=== PATIENT | male | born 2000 ===

== ENCOUNTER 2025-05-26 11:17 | Outpatient (REF) | payer MEDICAID, SELFPAY ==
--- OUTSIDE RECORDS SUMMARY | 2023-02-28 07:00 | XMS_ITS | Continuity of Care Document ---
Author Organization [facility] Address [address] [place] [address] Phone Care Team Providers Care Account Services Analyst Name Role Phone Chad THOMAS Kala Unavailable Unavailable Allergies, Adverse Reactions, Alerts Substance Reaction Status Criticality No Known Allergies Active No Inform ation Problems Condition Type Effective Dates (start - stop) Clini iftikhar Status Comments No Known Problems Procedures Procedure Date Prophylaxis-Adult Oral Hygiene Instructions Bitewings-Four Films Intraoral-Periapical First Film 023 Intraoral-Periapical Each Additional Adrian m OFFICE/OUTPT Visit - Established - Low M DM, 20 - 29 Minutes OFFICE/OUTPT Visit - Established - SF MD M, 10 - 19 Minutes PURE TONE HEARING TEST, AIR VISUAL ACUITY SCREEN PREV VISIT, NEW, AGE 18-39 Depression Screening, Negative Advance Directives Directive Yes / No Effective Date File Name No Information Encounters Encounter Description Practice Location Reason(s) For Visit Diagnoses Date Provider Providers Copied on Encounter [facility], [address] [place] [address], [id number], [place] tel:[phone] [facility] Dental No Information 3 Chad Armendariz. 500 [facility], [id number] [address] [place] [address], [id number], [place]. tel:[phone] OFFICE/OUTPT Visit - Established - Low MDM, 20 - 29 Minutes [facility], [address] [place] [address], [id number], [place] tel:[phone] [facility] Pediatrics Rash on left leg x2 days (chief complaint) Body mass index (BMI) 19 or less, adultTinea corporis 3 Mateo Perla. [address] Savita Wharton, [id number] [address] [place] [address], [facility], [place]. tel:[phone] OFFICE/OUTPT Visit - Established - MDM, 10 - 19 Minutes [facility], [address] [place], [place], [facility], tel:[phone] [facility] Pediatrics Follow Up (chief complaint) Body mass index (BMI) 19 or less, adultEncounter for general adult medical examination without abnormal findings 3 Mark Smith. [address], [id number] [facility], [place], [place], [facility], [place]. tel:[phone] PREV VISIT, NEW, AGE 18-39 [facility], [address] [place] [address], [place], [facility], [place] tel:[phone] [facility] Pediatrics Preventive Medicine (chief complaint)N ew PT from [place] (chief complaint) Encounter for general adult medical examination without abnormal findingsBody mass index (BMI) 19 or less, adultEncounter for exam of ears and hearing w/o abnormal findingsEncounte r for exam of eyes and vision w/o abnormal findingsScreenin g for depressionSleep difficultiesDiab etes mellitus screening 3 Mark Smith. Tarsha Wharton, [id number] [address], [place], [address], [place]. tel:[phone] Family History Family Member Type Diagnosis Age At Onset Maternal grandfather Problem Thyroid disorder Mother Problem hypertension Paternal grandmother Problem Diabetes mellitus Payers Payer name Insurance type Covered republican ID Authorverna tiwale(s) D Medicaid [id number] Social History Type Description Quantity Date Captured Comments Sex Male Smoking Status No Information Sexual Orientation Choose not to disclose Gender Identity Male Chief Complaint And Reason For Visit No Information Reason For Referral Reason For Referral No Information Plan Of Treatment Date Type Action Status Goal Dietary management education , guidance, and counseling completed Goal Dietary management education , guidance, and counseling completed Goal Dietary management education , guidance, and counseling completed History Of Present Illness Encounter Date Complaint History Of Prese nt Illness Rash on left leg x2 days Patient presents with a 2-day history of circular rash on left outer thigh.He denies use of new soaps, detergents, or body products. No known allergies.He states the rash is occasionally itchy, no pain or drainage.He has not taken any medicine for relief. Follow Up Here for F/U. Be s not brought the vaccine record from [place]. No hospitalizations. No meds. NKDA.Looking for a job. Denies smoking and drug abuse. No sex yet. Reports good mood, no SI.Hx of difficulty falling asleep. Sleeps better with the melatonin, 6-7 hours/night. Eats breakfast daily. Preventive Medicine New patient. Here for PE. No hospitalizations. No meds. NKDA.Looking for a job. Denies smoking and drug abuse. No sex yet. Reports good mood, no SI.Reports difficulty falling asleep. Sleeps 6-7 hours/night. Eats breakfast daily. New PT from [place] Functional Status Date Functional Assessmen t No Information Instructions Date Instruction Additional Infor kristina - prescribed clotrim azole to be applied to rash for 2-3 weeks- check other in house for same rash- wash clothes and bedding in hot water- follow up in 2 weeks Related to Tinea corporis Exercise promotion: stretching R elated to Body mass index [BMI] 19.9 or less, adult Dietary management e ducation, guidance, and counseling Related to Body mass index [BMI] 19.9 or less, adult Dietary management e ducation, guidance, and counseling Related to Body mass index [BMI] 19.9 or less, adult Exercise promotion: stretching R elated to Body mass index [BMI] 19.9 or less, adult Dietary management e ducation, guidance, and counseling Related to Body mass index [BMI] 19.9 or less, adult Exercise promotion: stretching R elated to Body mass index [BMI] 19.9 or less, adult Assessments Type Assessment Date No Information Patient Care Teams Name Effective Dates (start - stop) Status Members No Information
--- OUTSIDE RECORDS SUMMARY | 2025-05-26 10:20 | XMS_ITS | Encounter Summary ---
Author Organization [employer] Address [address] [place] [address] [address] [place] [address] Care Team Providers Care Catering Driver Name Role Phone Unavailable Primary Care Provider Unavailabl e Reason for Referral * Consultation (Routine) - Authorized Specialty Diagnoses / Procedures Referred By Sacha t Referred To Contact Family Medicine Diagnoses Penile rash Christopher Restrepo MD [address] [place] [address] Phone: tel: fax: Referral ID Status Reason Start Date Expiration Date Visits Requested Visits Authorized [id number] Authorized Specialty Services Required 05/26/2025 05/26/2026 1 1 Reason for Visit * Reason Comments Asthma Wheezing mostly duri ng the night time Rash Rash on the genital area with discoloration Encounter Details Date Type Department Care Team ([facility] st Contact Info) Description 05/26/2025 10:20 AM EDT Office Visit [facility] [address] [place] [phone] Christopher Restrepo MD [address] [place], [place] [id number] Penile rash (Primary Dx); Moderate persistent asthma without complication Social History Tobacco Use Types Packs/Day Years Used Date Smoking Tobacco: Never Smokeless Tobacco: Never Tobacco Cessation:Counseling Given: Not Answered Alcohol Use Standard Drinks/Week Comments Not Currently 0 (1 standard drink = 0.6 oz pur e alcohol) Sex and Gender Information Value Date Recorded Sex Assigned at Male 01/06/2025 4:43 PM EDT Legal Sex Male 3:49 PM EST Gender Identity Male 01/06/2025 4:43 PM EDT Sexual Orientation Bisexual 01/06/2025 4: 43 PM EDT documented as of this encounter Last Filed Vital Signs Vital Sign Reading Time Taken Comments Blood Pressure 130/77 05/26/2025 10:49 AM EDT Pulse 74 05/26/2025 10:49 AM EDT Temperature 36.7 C (98 F) 05/26/2025 10:49 AM EDT Respiratory Rate 18 05/26/2025 10:49 AM EDT Oxygen Saturation 98% 05/26/2025 10:49 AM EDT Inhaled Oxygen Concentration - - Weight 72.6 kg (160 lb) 05/26/2025 10:49 AM EDT Height - - Body Mass Index 21.11 01/06/2025 5:35 PM EDT documented in this encounter Progress Notes * Christopher Restrepo MD - 05/26/2025 10:20 AM EDT Subjective Patient ID: Ronald Pineda is a 25 y.o. male. YOMAIRA Cardenas was seen as a new patient at [facility] January 06, 2025 for a 1 month history of an itchy rash on the shaft of his penis. He denied any urethral discharge dysuria or hematuria. He has male partners in always uses a condom. Has no history of STI. He was prescribed Lotrimin 1% cream. STI testing was ordered but he did not have the test done. He returns to walk-in clinic today because the Lotrimin cream helped the penile rash itching but not the rash, which . Also requesting refill of albuterol HFA which he uses from 1 to 3 days/week every week. Currently asymptomatic. States history of asthma since childhood Never intubated. Lives with mother and brother. 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 Never smoked. No EtOH. No illicit substances. The following portions of the chart were reviewed this encounter and updated as appropriate: Allergies Meds Problems Med Hx Surg Hx Fam Hx Review of Systems Constitutional: Negative for fever. Respiratory: Negative for shortness of breath. Cardiovascular: Negative for chest pain. Gastrointestinal: Negative for abdominal pain. Skin: Positive for rash. Neurological: Negative for headaches. Objective Physical Exam Constitutional: Appearance: Normal appearance. HENT: Nose: Nose normal. Mouth/Throat: Mouth: Mucous membranes are moist. Pharynx: Oropharynx is clear. Eyes: Conjunctiva/sclera: Conjunctivae normal. Pupils: Pupils are equal, round, and reactive to light. Cardiovascular: Rate and Rhythm: Normal rate and regular rhythm. Heart sounds: No murmur heard. Pulmonary: Effort: Pulmonary effort is normal. Breath sounds: Normal breath sounds. Genitourinary: Penis: Circumcised. Comments: Mild, diffuse, minimally erythematous macular rash over the penis shaft and scrotum. Musculoskeletal: General: Normal range of motion. Cervical back: No tenderness. Skin: Findings: No rash. Neurological: Mental Status: He is alert. Gait: Gait is intact. Psychiatric: Mood and Affect: Mood normal. Behavior: Behavior normal. Procedures Assessment/Plan Diagnoses and all orders for this visit: Penile rash Prescribed betamethasone valerate 0.1% cream to use sparingly. STI lab tests ordered. Will call patient with results. Discussed PrEP, which he would like to start. I called [facility] and they will call patient with appointment. Referred to [facility] dermatology clinic. - Hepatitis B Core Antibody, Total; Future - Hepatitis B Surface Antibody, Qualitative; Future - Hepatitis B surface antigen, EIA; Future - Hepatitis C Antibody with Reflex to HCV, RNA, Quantitative, Real-Time PCR; Future - HIV-1/2 Antigen and Antibodies, Fourth Generation, with Reflexes; Future - RPR (Monitor) with Reflex to Titer; Future - Comprehensive Metabolic Panel; Future - CBC auto differential; Future - Hemoglobin A1c; Future - Vitamin D, 25-Hydroxy, Total, Immunoassay; Future - Chlamydia/N. Gonorrhoeae RNA, TMA, Urogenitial; Future Moderate persistent asthma without complication Refilled albuterol HFA. He declines spacer. Prescribed Arnuity Ellipta because of frequency of needing albuterol. Return to clinic for concerns. I asked for a new patient PCP appointment. Other orders - betamethasone valerate (Valisone) 0.1 % cream; Apply topically 2 times daily. - albuterol 108 (90 Base) MCG/ACT inhaler; Inhale 2 puffs every 4 (four) hours if needed for wheezing or shortness of breath. - fluticasone furoate (Arnuity Ellipta) 100 MCG/ACT inhaler; Inhale 1 puff Once per day. Rinse mouth with water after use to reduce aftertaste and incidence of candidiasis. Do not swallow. documented in this encounter Plan of Treatment Scheduled Orders Name Type Priority Associated Diagnoses Orde r Schedule Hepatitis B Core Antibody, Total Lab Routine Penile rash Expected: 05/26/2025 (Approximate), Expires: 05/26/2026 Hepatitis B Surface Antibody, Qualitative Lab Routine Penile rash Expected: 05/26/2025 (Approximate), Expires: 05/26/2026 Hepatitis B surface antigen, EIA Lab Routine Penile rash Expected: 05/26/2025 (Approximate), Expires: 05/26/2026 Hepatitis C Antibody with Reflex to HCV, RNA, Quantitative, Real-Time PCR Lab Routine Penile rash Expected: 05/26/2025 (Approximate), Expires: 05/26/2026 HIV-1/2 Antigen and Antibodies, Fourth Generation, with Reflexes Lab Routine Penile rash Expected: 05/26/2025 (Approximate), Expires: 05/26/2026 RPR (Monitor) with Reflex to Titer Lab Routine Penile rash Expected: 05/26/2025 (Approximate), Expires: 05/26/2026 Chlamydia/N. Gonorrhoeae RNA, TMA, Urogenitial Microbiology Routine Penile rash Expected: 05/26/2025 (Approximate), Expires: 05/26/2026 Scheduled Referrals Name Type Priority Associated Diagnoses Orde r Schedule Referral to [facility] Derm Skin Adult Outpatient Referral Routine Penile rash Expected: 05/26/2025 (Approximate), Expires: 05/26/2026 documented as of this encounter Procedures Procedure Name Priority Date/Time Associated Diagnosis Comments VITAMIN D,25-OH,TOTAL,IA Routine 05/26/2025 11:38 AM EDT Penile rash CBC WITH AUTO DIFFERENTIAL Routine 05/26/2025 11:38 AM EDT Penile rash HEMOGLOBIN A1C Routine 05/26/2025 11:38 AM EDT Penile rash COMPREHENSIVE METABOLIC PANEL Routine 05/26/2025 11:38 AM EDT Penile rash documented in this encounter Results * (ABNORMAL) Vitamin D, 25-Hydroxy, Total, Immunoassay (05/26/2025 11:38 AM EDT) Vitamin D 25-OH Total 17.9(L) >30 ng/mL [facility] Comment: Health Based Reference Values*< 20 ng/mL Mydaytpxj52-67 ng/mL Insufficient> 30 ng/mL Sufficient*Patria PAREDES. N Engl J Med. 2007;357:266-280There is no well-established upper level of normal vitamin Dlevels. Some laboratories use 50 ng/mL as an upper limit ofnormal. However, toxicity is patient-dependent and may occurat any level. Careful correlation with the patient'spresentation is necessary and, if there is concern forvitamin D toxicity, treatment should be consideredirrespective of the serum level.Care must be taken in interpreting Vitamin D results fromdifferent laboratories and methodologies. Published datademonstrated that results from patients undergoinghemodialysis may show a negative bias when tested withvarious automated 25-OH vitamin D assays when compared toLC-MS/MS.When testing samples from patients whose predominant form ofVitamin D is Vitamin D2, such as patients receiving VitaminD2 supplementation, results that are subtherapeutic shouldbe confirmed with another method such as LC-MS/MS. Blood 05/26/2025 11:3 8 AM EDT 05/26/2025 1:13 PM EDT us Christopher Restrepo MD LAB BLOOD ORDERABLES Final Resul t [facility] [address] [place] [phone] * Hemoglobin A1c (05/26/2025 11:38 AM EDT) Hemoglobin A1c 5.3 <6.0 % [facility] Comment:Hemoglobin A1C Refer ence Range Adults: 4.8 - 6.0 % Non diabetic: < 6.0 % Goal: < 7.0 %Additional Action Suggested: > 8.0 %Note: Hemoglobin A1c results are invalid for patients with abnormal amounts of HbF. Blood transfusions may impact the HbA1c concentration in the patient sample. Estimated Average Glucose 105 mg/dL [facility] Comment:eAG = Estimated ave rage glucose which is %A1C expressed asaverage glucose, using the formula of the [id number] Glucose study (ADAG), Diabetes Care, Vol.31,#8,Apr. 2007 Blood Venous blood specimen / Unknown 05/26/2025 11:38 AM EDT 05/26/2025 1:13 PM EDT us Christopher Restrepo MD LAB BLOOD ORDERABLES Final Resul t [facility] [address], [place] [phone] * (ABNORMAL) CBC auto differential (05/26/2025 11:38 AM EDT) White Blood Count 5.9 4.8 - 10.8 X10*3/uL [facility] Red Blood Count 4.68 4.60 - 5.80 X10*6/uL [facility] Hemoglobin 13.6(L) 14.0 - 18.0 g/dl [facility] Hematocrit 41.4(L) 42.0 - 52.0 % [facility] Mean Corpuscular Volume 88.5 80.0 - 98.0 fL [facility] Mean Corpuscular Hemoglobin 29.1 27.0 - 33.0 pg [facility] Mean Corpuscular HGB Conc 32.9 31.0 - 36.0 g/dl [facility] Red Cell Distribution Width 12.8 11.0 - 16.0 % [facility] Platelet Count 373 160 - 400 X10*3/uL [facility] Mean Platelet Volume 10.2 9.4 - 12.4 fL [facility] Neutrophils Percent Auto 60.6 45 - 73 % [facility] Imm Gran Pct Auto 0.2 0.0 - 0.4 % [facility] Lymphocytes Percent Auto 24.6 20 - 40 % [facility] Monocytes Percent Auto 6.5 2 - 11 % [facility] Eosinophils Percent Auto 7.2(H) 0 - 4 % [facility] Basophils Percent Auto 0.9 0 - 2 % [facility] NRBC Pct Auto 0.0 0.0 - 0.2 /100WBC [facility] Neutrophils Absolute Auto 3.6 2.0 - 8.3 x10*3/uL [facility] Imm Gran Abs Auto 0.01 0.00 - 0.03 X10*3/uL [facility] Lymphocytes Absolute Auto 1.4 1.2 - 4.9 X10*3/uL [facility] Monocytes Absolute Auto 0.4 0.1 - 1.2 X10*3/uL [facility] Eosinophils Absolute Auto 0.4 0.0 - 0.4 X10*3/uL [facility] Basophils Absolute Auto 0.1 0.0 - 0.2 X10*3/uL [facility] NRBC Abs Auto 0.000 0.0 - 0.012 X10*3/uL [facility] Blood Venous blood specimen / Unknown 05/26/2025 11:38 AM EDT 05/26/2025 1:13 PM EDT us Christopher Restrepo MD LAB BLOOD ORDERABLES Final Resul t [facility] [address] [place] [phone] * (ABNORMAL) Comprehensive Metabolic Panel (05/26/2025 11:38 AM EDT) Sodium 143 135 - 145 mmol/L [facility] Potassium 3.7 3.3 - 5.1 mmol/L [facility] Chloride 108 96 - 108 mmol/L [facility] Carbon Dioxide 31(H) 22 - 29 mmol/L [facility] Anion Gap 8(L) 12 - 20 [facility] Urea Nitrogen (BUN) 15 9 - 16 mg/dL [facility] Creatinine, Serum 0.87 0.5 - 1.4 mg/dL [facility] Estimated Glomerular Filt Rate >60 [facility] Comment:Chronic Kidney Disea se: Estimated GFR < 60 mL/min/1.02r3Xcamml Kidney Disease: Estimated GFR < 15 mL/min/1.73m2 Glucose 70 60 - 115 mg/dL [facility] Calcium 9.0 8.4 - 10.2 mg/dL [facility] Bilirubin, Total 0.3 0.0 - 1.0 mg/dL [facility] Aspartate Amino Transferase 20 5 - 37 U/L [facility] Alanine Aminotransferase 13 0 - 40 U/L [facility] Total Protein 7.3 6.5 - 8.0 g/dL [facility] Albumin Level 4.4 3.5 - 5.0 g/dL [facility] Alkaline Phosphatase 76 39 - 117 U/L [facility] Blood Venous blood specimen / Unknown 05/26/2025 11:38 AM EDT 05/26/2025 1:13 PM EDT us Christopher Restrepo MD LAB BLOOD ORDERABLES Final Resul t [facility] [address], [place] [phone] documented in this encounter Visit Diagnoses Diagnosis Penile rash- Primary Moderate persistent asthma without complication documented in this encounter
[2025-05-26 13:20] LABS: MANUAL DIFF FLAG NO
[2025-05-26 13:22] LABS: Hematocrit 41.4 % (42.0-52.0); Hemoglobin 13.6 g/dl (14.0-18.0); Imm Gran Abs Auto 0.01 X10*3/uL (0.00-0.03); Imm Gran Pct Auto 0.2 % (0.0-0.4); Lymphocytes Absolute Auto 1.4 X10*3/uL (1.2-4.9); Mean Corpuscular HGB Conc 32.9 g/dl (31.0-36.0); Mean Corpuscular Hemoglobin 29.1 pg (27.0-33.0); Mean Corpuscular Volume 88.5 fL (80.0-98.0); NRBC Abs Auto 0.000 X10*3/uL (0.0-0.012); NRBC Pct Auto 0.0 /100WBC (0.0-0.2); Platelet Count 373 X10*3/uL (160-400); Red Blood Count 4.68 X10*6/uL (4.60-5.80); White Blood Count 5.9 X10*3/uL (4.8-10.8)
[2025-05-26 13:49] LABS: Hemoglobin A1C 123.3294 umol/L; Total Hemoglobin (HGBA1C) 3537.3461 umol/L
[2025-05-26 14:29] LABS: Alanine Aminotransferase 13 U/L (0-40); Albumin Level 4.4 g/dL (3.5-5.0); Alkaline Phosphatase 76 U/L (39-117); Anion Gap 8 (12-20); Aspartate Amino Transferase 20 U/L (5-37); Blood Urea Nitrogen 15 mg/dL (9-16); Calcium 9.0 mg/dL (8.4-10.2); Carbon Dioxide 31 mmol/L (22-29); Chloride 108 mmol/L (96-108); Estimated Glomerular Filt Rate > 60; Potassium 3.7 mmol/L (3.3-5.1); Sodium 143 mmol/L (135-145); Total Protein 7.3 g/dL (6.5-8.0)
--- OUTSIDE RECORDS SUMMARY | 2025-05-26 15:25 | XMS_ITS | Clinical Summary ---
Author Organization [email or web address] Address [address] [facility] [address]t [place] [address] Care Team Providers Care Web Marketing Manager Name Role Phone Unavailable Primary Care Provider Unavailabl e Allergies No known active allergies Medications betamethasone valerate (Valisone) 0.1 % cream Apply topically 2 times daily. 30 g 1 5 Active albuterol 108 (90 Base) MCG/ACT inhaler Inhale 2 puffs every 4 (four) hours if needed for wheezing or shortness of breath. 18 g 5 5 05/26/20 26 Active fluticasone furoate (Arnuity Ellipta) 100 MCG/ACT inhaler Inhale 1 puff Once per day. Rinse mouth with water after use to reduce aftertaste and incidence of candidiasis. Do not swallow. 1 each 5 5 05/26/20 26 Active Active Problems Problem Noted Date Diagnosed Date Moderate persistent asthma without complication 05/26/2025 Encounters Date Type Department Care Team Description 05/26/2025 10:20 AM EDT Office Visit [facility] [address] [place] [phone] Christopher Resrtepo MD Penile rash (Primary Dx); Moderate persistent asthma without complication 05/26/2025 Telephone [facility] [address] [place] [address] Eric Briceño MD 05/26/2025 Travel from Last 3 Months Social History Tobacco Use Types Packs/Day Years [...] Orientation Bisexual 01/06/2025 4: 43 PM EDT Last Filed Vital Signs Vital Sign Reading Time Taken Comments Blood Pressure 130/77 05/26/2025 10:49 AM EDT Pulse 74 05/26/2025 10:49 AM EDT Temperature 36.7 C (98 F) 05/26/2025 10:49 AM EDT Respiratory Rate 18 05/26/2025 10:49 AM EDT Oxygen Saturation 98% 05/26/2025 10:49 AM EDT Inhaled Oxygen Concentration - - Weight 72.6 kg (160 lb) 05/26/2025 10:49 AM EDT Height 185.4 cm (6' 1 ) 01/06/2025 5:35 PM EDT Body Mass Index 21.11 01/06/2025 5:35 PM EDT Plan of Treatment Health Maintenance Due Date Last Done Comments Chlamydia and Gonorrhea Screening 2002 Depression Screening 2002 HIV Screening 2002 SDOH Screening 2002 Disability Screening 2002 Alcohol/Substance Use Screening 2014 Family Planning (PISQ) 2017 HPV Vaccines (1 - Male 3-dos e series) 2017 Meningococcal B Vaccine (1 o f 2 - Standard) 2018 Hepatitis C Screening 01/10/2020 DTaP/Tdap/Td Vaccines (1 - Tdap) 2021 Hepatitis B Vaccines (1 of 3 - 19+ 3-dose series) 2021 Pneumococcal Vaccine: Pediat rics (0 to 5 Years) and At-Risk Patients (6 to 49) Years (1 of 2 - PCV) 2021 COVID-19 Vaccine (1 - 2023-2 5 season) 2025 Influenza Vaccine (#1) 2025 Tobacco Screening 05/26/2026 05/26/2025 Zoster Vaccines (1 of 2) 01/10/2052 RSV Patients and Pa tients Aged 60 years or older (1 - 1-dose 75+ series) 2077 HIB Vaccines Aged Out No longer eligi ble based on patient's age to complete this topic Hepatitis A Vaccines Aged Out No long er eligible based on patient's age to complete this topic IPV Vaccines Aged Out No longer eligi ble based on patient's age to complete this topic Meningococcal Vaccine Aged Out No charity lesly eligible based on patient's age to complete this topic RSV under 20 months Aged Out No longe r eligible based on patient's age to complete this topic Rotavirus Vaccines Aged Out No longer eligible based on patient's age to complete this topic Procedures Procedure Name Priority Date/Time Associated Diagnosis Comments VITAMIN D,25-OH,TOTAL,IA Routine 05/26/2025 11:38 AM EDT Penile rash HEMOGLOBIN A1C Routine 05/26/2025 11:38 AM EDT Penile rash CBC WITH AUTO DIFFERENTIAL Routine 05/26/2025 11:38 AM EDT Penile rash COMPREHENSIVE METABOLIC PANEL Routine 05/26/2025 11:38 AM EDT Penile rash from Last 3 Months Results * (ABNORMAL) Vitamin D, 25-Hydroxy, Total, Immunoassay (05/26/2025 11:38 AM EDT) Vitamin D 25-OH Total 17.9(L) >30 ng/mL [facility] Comment: Health Based Reference Values*< 20 ng/mL Phvjloscy75-76 ng/mL Insufficient> 30 ng/mL Sufficient*Patria PAREDES. N [...] MD LAB BLOOD ORDERABLES Final Resul t [facility] [address] [place], [place] [phone] * (ABNORMAL) CBC auto differential (05/26/2025 11:38 AM EDT) White Blood Count 5.9 4.8 - 10.8 X10*3/uL [facility] Red Blood Count 4.68 4.60 - 5.80 X10*6/uL [facility] Hemoglobin 13.6(L) 14.0 - 18.0 g/dl [facility] Hematocrit 41.4(L) 42.0 - 52.0 % [facility] Mean Corpuscular Volume 88.5 80.0 - 98.0 fL [facility] Mean Corpuscular Hemoglobin 29.1 27.0 - 33.0 pg [facility] Mean Corpuscular HGB Conc 32.9 31.0 - 36.0 g/dl [facility] Red Cell Distribution Width 12.8 11.0 - 16.0 % [facility] Platelet Count 373 160 - 400 X10*3/uL [facility] Mean Platelet Volume 10.2 9.4 - 12.4 fL [facility] Neutrophils Percent Auto 60.6 45 - 73 % [facility] Imm Gran Pct Auto 0.2 0.0 - 0.4 % [facility] Lymphocytes Percent Auto 24.6 20 - 40 % [facility] Monocytes Percent Auto 6.5 2 - 11 % [facility] Eosinophils Percent Auto 7.2(H) 0 - 4 % [facility] Basophils Percent Auto 0.9 0 - 2 % [facility] NRBC Pct Auto 0.0 0.0 - 0.2 /100WBC [facility] Neutrophils Absolute Auto 3.6 2.0 - 8.3 x10*3/uL [facility] Imm Gran Abs Auto 0.01 0.00 - 0.03 X10*3/uL [facility] Lymphocytes Absolute Auto 1.4 1.2 - 4.9 X10*3/uL [facility] Monocytes Absolute Auto 0.4 0.1 - 1.2 X10*3/uL [facility] Eosinophils Absolute Auto 0.4 0.0 - 0.4 X10*3/uL [facility] Basophils Absolute Auto 0.1 0.0 - 0.2 X10*3/uL [facility] NRBC Abs Auto 0.000 0.0 - 0.012 X10*3/uL [facility] Blood Venous blood specimen / Unknown 05/26/2025 11:38 AM EDT 05/26/2025 1:13 PM EDT us Christopher Restrepo MD LAB BLOOD ORDERABLES Final Resul t [facility] [address] [place] [phone] * Hemoglobin A1c (05/26/2025 11:38 AM EDT) Hemoglobin A1c 5.3 <6.0 % [facility] Comment:Hemoglobin A1C Refer ence Range Adults: 4.8 - 6.0 % Non diabetic: < 6.0 % Goal: < 7.0 %Additional Action Suggested: > 8.0 %Note: Hemoglobin A1c results are invalid for patients with abnormal amounts of HbF. Blood transfusions may impact the HbA1c concentration in the patient sample. Estimated Average Glucose 105 mg/dL [facility] Comment:eAG = Estimated ave rage glucose which is %A1C expressed asaverage glucose, using the formula of the U6D-XvfzoxwIsyijfv Glucose study (ADAG), Diabetes Care, Vol.31,#8,Apr. 2007 Blood Venous blood specimen / Unknown 05/26/2025 11:38 AM EDT 05/26/2025 1:13 PM EDT us Christopher Restrepo MD LAB BLOOD ORDERABLES Final Resul t [facility] [address] [place] [phone] * (ABNORMAL) Comprehensive Metabolic Panel (05/26/2025 11:38 AM EDT) Sodium 143 135 - 145 mmol/L [facility] Potassium 3.7 3.3 - 5.1 mmol/L [facility] Chloride 108 96 - 108 mmol/L [facility] Carbon Dioxide 31(H) 22 - 29 mmol/L [facility] Anion Gap 8(L) 12 - 20 [facility] Urea Nitrogen (BUN) 15 9 - 16 mg/dL [facility] Creatinine, Serum 0.87 0.5 - 1.4 mg/dL [facility] Estimated Glomerular Filt Rate >60 [facility] Comment:Chronic Kidney Disea se: Estimated GFR < 60 mL/min/1.72g8Axgkpj Kidney Disease: Estimated GFR < 15 mL/min/1.73m2 Glucose 70 60 - 115 mg/dL [facility] Calcium 9.0 8.4 - 10.2 mg/dL [facility] Bilirubin, Total 0.3 0.0 - 1.0 mg/dL [facility] Aspartate Amino Transferase 20 5 - 37 U/L [facility] Alanine Aminotransferase 13 0 - 40 U/L [facility] Total Protein 7.3 6.5 - 8.0 g/dL [facility] Albumin Level 4.4 3.5 - 5.0 g/dL [facility] Alkaline Phosphatase 76 39 - 117 U/L [facility] Blood Venous blood specimen / Unknown 05/26/2025 11:38 AM EDT 05/26/2025 1:13 PM EDT us Christopher Restrepo MD LAB BLOOD ORDERABLES Final Resul t [facility] [address] [place] [phone] from Last 3 Months Insurance * Guarantor: Ronald Pineda Account Type Relation to Patient Date of Phone Billing Address Personal/Family Self [address] [place] [address] [facility] C3
--- OUTSIDE RECORDS SUMMARY | 2025-05-26 15:25 | XMS_ITS | Encounter Summary ---
Author Organization [employer] Address [address] [facility] [address] [place] [address] Care Team Providers Care Brewmaster Name Role Phone Unavailable Primary Care Provider Unavailabl e Encounter Details Date Type Department Care Team ([facility] st Contact Info) Description 05/26/2025 Telephone [facility] [address] [place] [address] Eric Briceño MD [address] [place] [phone] Social History Tobacco Use Types Packs/Day Years Used Date Smoking Tobacco: Never Smokeless Tobacco: Never Alcohol Use Standard Drinks/Week Comments Not Currently 0 (1 standard drink = 0.6 oz pur e alcohol) Sex and Gender Information Value Date Recorded Sex Assigned at Male 01/06/2025 4:43 PM EDT Legal Sex Male 3:49 PM EST Gender Identity Male 01/06/2025 4:43 PM EDT Sexual Orientation Bisexual 01/06/2025 4: 43 PM EDT documented as of this encounter Miscellaneous Notes * Telephone Encounter - Irma Turner - 05/26/2025 1:58 PM EDT Patient added to [facility] New Patient wait list as of 05/26/25. * Telephone Encounter - Irma Turner - 05/26/2025 1:58 PM EDT ----- Message from Christopher Restrepo MD sent at 05/26/2025 11:26 AM EDT ----- Please schedule new patient PCP appointment. Thank you documented in this encounter Plan of Treatment Not on file documented as of this encounter Visit Diagnoses Not on filedocumented in this encounter
--- OUTSIDE RECORDS SUMMARY | 2025-05-26 15:25 | XMS_ITS | Encounter Summary ---
Author Organization [employer] Address [address] [facility] [place] [address] Care Team Providers Care Software Engineer Mobile Name Role Phone Unavailable Primary Care Provider Unavailabl e Encounter Details Date Type Department Care Team (Latest Contact Info) Description 05/26/2025 Travel Social History Tobacco Use Types Packs/Day Years [...] PM EDT documented as of this encounter Plan of Treatment Not on file documented as of this encounter Visit Diagnoses Not on filedocumented in this encounter
[2025-05-28 04:54] LABS: Syphilis Screen Nonreactive (Nonreactive)
[2025-05-28 05:24] LABS: HBS Num1 1.25 mIU/mL (0-7.99); HBc Num1 0.09 S/CO (0.00-0.79); HBsAGNum1 0.53 S/CO (0.00-0.99); HIV Num 1 0.06 S/CO (0.00-0.99); Hepatitis B Surface Antigen Negative (Negative); ~HepC Num1 0.13 S/CO (0.00-0.79); ~Hepatitis B Surface Antibody NONREACTIVE (Nonreactive); ~Hepatitis C Antibody Nonreactive (Nonreactive)
== END 2025-05-26 11:18 | disposition home or self-care (01) ==
LOC: HO.HHCL 11:17
PROVIDERS: Family Medicine; Visit Provider Emergency Medicine
DX: Z11.3 Encounter for screening for infections with a predominantly sexual mode of transmission (principal); Z11.4 Encounter for screening for human immunodeficiency virus [HIV]; Z11.59 Encounter for screening for other viral diseases; R21 Rash and other nonspecific skin eruption; Z20.828 Contact with and (suspected) exposure to other viral communicable diseases
CPT/HCPCS: 36415; 80053; 82306; 83036; 85025; 86592; 86704; 86706; 86780; 86803; 87340; 87389

== ENCOUNTER 2025-05-28 10:12 | Emergency (ER) | payer MEDICAID, SELFPAY ==
--- OUTSIDE RECORDS SUMMARY | 2023-02-28 07:00 | XMS_ITS | Continuity of Care Document ---
Author Organization [facility] Address [address] [place] [address] Phone Care Team Providers Care It Account Manager Name Role Phone Chad THOMAS Kala Unavailable [...] Diagnoses Date Provider Providers Copied on Encounter [facility], [address] [place] [address], [address], [place] tel:[phone] [facility] Dental No Information 3 Chad Armendariz. 500 [facility], [id number] [address] [place] [address], [id number], [place]. tel:[phone] OFFICE/OUTPT Visit - Established - Low MDM, 20 - 29 Minutes [facility], [address] [place] [address], [id number], [place] tel:[phone] [facility] Pediatrics Rash on left leg x2 days (chief complaint) Body mass index (BMI) 19 or less, adultTinea corporis 3 Mateo Perla. [address], [id number] [address] [place] [place] [address], [facility], [place]. tel:[phone] OFFICE/OUTPT Visit - Established - MDM, 10 - 19 Minutes [facility], [address] [place], [place], [facility], tel:[phone] [facility] Pediatrics Follow Up (chief complaint) Body mass index (BMI) 19 or less, adultEncounter for general adult medical examination without abnormal findings 3 Mark Smith. [address], [id number] [facility], [place], [place], [facility], [place]. tel:[phone] PREV VISIT, NEW, AGE 18-39 [facility], [address] [place] [address], [place], [place], [facility], [place] tel:[phone] [facility] Pediatrics Preventive Medicine (chief complaint)N ew PT from [place] (chief complaint) Encounter for general adult medical examination without abnormal findingsBody mass index (BMI) 19 or less, adultEncounter for exam of ears and hearing w/o abnormal findingsEncounte r for exam of eyes and vision w/o abnormal findingsScreenin g for depressionSleep difficultiesDiab etes mellitus screening 3 Mark Smith. Tarsha Wharton, [id number] [place], [place], [address], [place]. tel:[phone] Family History Family Member Type Diagnosis Age At Onset Maternal grandfather Problem Thyroid disorder Mother Problem hypertension Paternal grandmother Problem Diabetes mellitus Payers Payer name Insurance type Covered republican ID Authorverna tiwale(s) D Medicaid [id number] Social History Type Description Quantity Date Captured [...] s not brought the vaccine record from [place]. No hospitalizations. No meds. NKDA.Looking for a [...] hours/night. Eats breakfast daily. New PT from [place] Functional Status Date Functional Assessmen t No Information Instructions Date Instruction Additional Infor kristina - prescribed clotrim azole to be applied to rash for 2-3 weeks- check other in house for same rash- wash clothes and bedding in hot water- follow up in 2 weeks Related to Tinea corporis Dietary management e ducation, guidance, and counseling [...]
--- OUTSIDE RECORDS SUMMARY | 2025-05-26 10:20 | XMS_ITS | Encounter Summary ---
Author Organization [employer] Address [address] [place] [address] 7[address] [place] [address] Care Team Providers Care Hygiene Teacher Name Role Phone Unavailable Primary Care Provider Unavailabl e Reason for Referral * Consultation (Routine) - Authorized Specialty Diagnoses / Procedures Referred By Sacha t Referred To Contact Family Medicine Diagnoses Penile rash Christopher Restrepo MD [address] [place] [phone] Phone: tel: fax: Referral ID Status Reason Start Date Expiration Date Visits Requested Visits Authorized [id number] Authorized Specialty Services Required 05/26/2025 05/26/2026 1 1 Reason for Visit * Reason Comments Asthma Wheezing mostly duri ng the night time Rash Rash on the genital area with discoloration Encounter Details Date Type Department Care Team ([facility] st Contact Info) Description 05/26/2025 10:20 AM EDT Office Visit [facility] [address] [place] [phone] Christopher Restrepo MD [address] [place], [place] [phone] Penile rash (Primary Dx); Moderate persistent asthma [...] was seen as a new patient at [facility] January 06, 2025 for a 1 month history of an itchy rash on the shaft of his penis. He denied any urethral discharge dysuria or hematuria. He has male partners and always uses a condom. Has no history [...] Lives with mother and brother. 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 Never smoked. No EtOH. No illicit substances. [...] will call patient with appointment. Referred to [facility] dermatology clinic. - Hepatitis B Core Antibody, [...] Type Priority Associated Diagnoses Orde r Schedule Chlamydia/N. Gonorrhoeae RNA, TMA, Urogenitial Microbiology Routine Penile rash Expected: 05/26/2025 (Approximate), Expires: 05/26/2026 Scheduled Referrals Name Type Priority Associated Diagnoses Orde r Schedule Referral to [facility] Referral Routine Penile rash Expected: 05/26/2025 (Approximate), Expires: 05/26/2026 documented as of this encounter Procedures Procedure Name Priority Date/Time Associated Diagnosis Comments VITAMIN D,25-OH,TOTAL,IA Routine 05/26/2025 11:38 AM EDT Penile rash CBC WITH AUTO DIFFERENTIAL Routine 05/26/2025 11:38 AM EDT Penile rash HEPATITIS C AB W/REFL TO HCV RNA, QN, PCR Routine 05/26/2025 11:38 AM EDT Penile rash HEPATITIS B SURFACE ANTIGEN, EIA Routine 05/26/2025 11:38 AM EDT Penile rash HEPATITIS B CORE AB TOTAL Routine 05/26/2025 11:38 AM EDT Penile rash RPR (MONITOR) W/REFL TITER Routine 05/26/2025 11:38 AM EDT Penile rash HIV 1/2 ANTIGEN/ANTIBODY, FOURTH GENERATION W/RFL Routine 05/26/2025 11:38 AM EDT Penile rash HEPATITIS B SURFACE ANTIBODY, QUALITATIVE Routine 05/26/2025 11:38 AM EDT Penile rash HEMOGLOBIN A1C Routine 05/26/2025 11:38 AM EDT Penile rash COMPREHENSIVE METABOLIC PANEL Routine 05/26/2025 11:38 AM EDT Penile rash documented in this encounter Results * (ABNORMAL) Vitamin D, 25-Hydroxy, Total, Immunoassay (05/26/2025 11:38 AM EDT) Vitamin D 25-OH Total 17.9(L) >30 ng/mL [facility] Comment: Health Based Reference Values*< 20 ng/mL [id number] ng/mL Insufficient> 30 ng/mL Sufficient*Patria PAREDES. N [...] MD LAB BLOOD ORDERABLES Final Resul t [facility] [address], [place] [phone] * Hemoglobin A1c (05/26/2025 11:38 AM EDT) Hemoglobin A1c 5.3 <6.0 % [facility] Comment:Hemoglobin A1C Refer ence Range Adults: 4.8 - 6.0 % Non diabetic: < 6.0 % Goal: < 7.0 %Additional Action Suggested: > 8.0 %Note: Hemoglobin A1c results are invalid for patients with abnormal amounts of HbF. Blood transfusions may impact the HbA1c concentration in the patient sample. Estimated Average Glucose 105 mg/dL [facility] Comment:eAG = Estimated ave rage glucose which is %A1C expressed asaverage glucose, using the formula of the A9J-PziunrqXvdjasn Glucose study (ADAG), Diabetes Care, Vol.31,#8,Apr. 2007 Blood Venous blood specimen / Unknown 05/26/2025 11:38 AM EDT 05/26/2025 1:13 PM EDT us Christopher Restrepo MD LAB BLOOD ORDERABLES Final Resul t [facility] [address] [place] [phone] * (ABNORMAL) CBC auto differential (05/26/2025 11:38 AM EDT) White Blood Count 5.9 4.8 - 10.8 X10*3/uL [facility] Red Blood Count 4.68 4.60 - 5.80 X10*6/uL [facility] Hemoglobin 13.6(L) 14.0 - 18.0 g/dl [facility] Hematocrit 41.4(L) 42.0 - 52.0 % [facility] Mean Corpuscular Volume 88.5 80.0 - 98.0 fL [facility] Mean Corpuscular Hemoglobin 29.1 27.0 - 33.0 pg [facility] Mean Corpuscular HGB Conc 32.9 31.0 - 36.0 g/dl [facility] Red Cell Distribution Width 12.8 11.0 - 16.0 % [facility] Platelet Count 373 160 - 400 X10*3/uL [facility] Mean Platelet Volume 10.2 9.4 - 12.4 fL [facility] Neutrophils Percent Auto 60.6 45 - 73 % [facility] Imm Gran Pct Auto 0.2 0.0 - 0.4 % [facility] Lymphocytes Percent Auto 24.6 20 - 40 % [facility] Monocytes Percent Auto 6.5 2 - 11 % [facility] Eosinophils Percent Auto 7.2(H) 0 - 4 % [facility] Basophils Percent Auto 0.9 0 - 2 % [facility] NRBC Pct Auto 0.0 0.0 - 0.2 /100WBC [facility] Neutrophils Absolute Auto 3.6 2.0 - 8.3 x10*3/uL [facility] Imm Gran Abs Auto 0.01 0.00 - 0.03 X10*3/uL [facility] Lymphocytes Absolute Auto 1.4 1.2 - 4.9 X10*3/uL [facility] Monocytes Absolute Auto 0.4 0.1 - 1.2 X10*3/uL [facility] Eosinophils Absolute Auto 0.4 0.0 - 0.4 X10*3/uL [facility] Basophils Absolute Auto 0.1 0.0 - 0.2 X10*3/uL [facility] NRBC Abs Auto 0.000 0.0 - 0.012 X10*3/uL [facility] Blood Venous blood specimen / Unknown 05/26/2025 11:38 AM EDT 05/26/2025 1:13 PM EDT us Christopher Restrepo MD LAB BLOOD ORDERABLES Final Resul t [facility] [address] [place] [phone] * (ABNORMAL) Comprehensive Metabolic Panel (05/26/2025 11:38 AM EDT) Sodium 143 135 - 145 mmol/L [facility] Potassium 3.7 3.3 - 5.1 mmol/L [facility] Chloride 108 96 - 108 mmol/L [facility] Carbon Dioxide 31(H) 22 - 29 mmol/L [facility] Anion Gap 8(L) 12 - 20 [facility] Urea Nitrogen (BUN) 15 9 - 16 mg/dL [facility] Creatinine, Serum 0.87 0.5 - 1.4 mg/dL [facility] Estimated Glomerular Filt Rate >60 [facility] Comment:Chronic Kidney Disea se: Estimated GFR < 60 mL/min/1.48g0Cbalyh Kidney Disease: Estimated GFR < 15 mL/min/1.73m2 Glucose 70 60 - 115 mg/dL [facility] Calcium 9.0 8.4 - 10.2 mg/dL [facility] Bilirubin, Total 0.3 0.0 - 1.0 mg/dL [facility] Aspartate Amino Transferase 20 5 - 37 U/L [facility] Alanine Aminotransferase 13 0 - 40 U/L [facility] Total Protein 7.3 6.5 - 8.0 g/dL [facility] Albumin Level 4.4 3.5 - 5.0 g/dL [facility] Alkaline Phosphatase 76 39 - 117 U/L [facility] Blood Venous blood specimen / Unknown 05/26/2025 11:38 AM EDT 05/26/2025 1:13 PM EDT us Christopher Restrepo MD LAB BLOOD ORDERABLES Final Resul t Performing Organization Address [facility] Co de Phone Number [facility] [address] [place] [phone] * RPR (Monitor) with Reflex to??Titer (05/26/2025 11:38 AM EDT) RPR (Monitor) w/Refl Titer NON-REACTI VE NON-REACT KARINA [facility] Comment:THIS TEST WAS PERFOR MED AT:[facility] [place] [phone] WOLF MD Rapid Plasma Reagin Ab Titer TNP [facility] Blood Venous blood specimen / Unknown 05/26/2025 11:38 AM EDT 05/26/2025 1:13 PM EDT us Christopher Restrepo MD LAB BLOOD ORDERABLES Final Resul t [facility] [address] [place] [phone] * HIV-1/2 Antigen and Antibodies, Fourth Generation, with Reflexes (05/26/2025 11:38 AM EDT) HIV AB/AG Nonreactive Nonreactive [facility] Comment:HIV-1 p24 Ag and/or HIV-1/HIV-2 Ab not detected.A test result that is nonreactive does not exclude thepossibility of exposure to or infection with HIV-1 and/orHIV-2. Nonreactive results in this assay for individualswith prior exposure to HIV-1 and/or HIV-2 may be due toantigen and antibody levels that are below the limit ofdetection of this assay.The [email or web address] HIV Ag/Ab Combo assay result andsupplemental assay results should be interpreted inconjunction with the patient's clinical presentation,history and other laboratory results. If the results areinconsistent with clinical evidence, additional testing issuggested to confirm the result. Blood Venous blood specimen / Unknown 05/26/2025 11:38 AM EDT 05/26/2025 1:13 PM EDT us Christopher Restrepo MD LAB BLOOD ORDERABLES Final Resul t Performing Organization Address [facility] Co de Phone Number [facility] [address] [place] [address] [phone] * Hepatitis C Antibody with Reflex to HCV, RNA, Quantitative, Real-Time PCR (05/26/2025 11:38 AM EDT) Hepatitis C Antibody Nonreactive Nonreactive [facility] Comment:Antibodies to HCV no t detected; does not exclude early acuteHCV infection. Blood Venous blood specimen / Unknown 05/26/2025 11:38 AM EDT 05/26/2025 1:13 PM EDT us Christopher Restrepo MD LAB BLOOD ORDERABLES Final Resul t Performing Organization Address [facility] Co de Phone Number [facility] [address] [place] [phone] * Hepatitis B surface antigen, EIA (05/26/2025 11:38 AM EDT) Pathologist [facility] [place] Hepatitis B Surface Ag Negative Negative [facility] Blood Venous blood specimen / Unknown 05/26/2025 11:38 AM EDT 05/26/2025 1:13 PM EDT us Christopher Restrepo MD LAB BLOOD ORDERABLES Final Resul t Performing Organization Address [facility] Co de Phone Number [facility] [address] [place] [phone] * Hepatitis B Surface Antibody, Qualitative (05/26/2025 11:38 AM EDT) ~Hepatitis B Surface Antibody NONREACTIVE Nonreactive [facility] Comment:Nonreactive: < 8.00 mIU/mL Blood Venous blood specimen / Unknown 05/26/2025 11:38 AM EDT 05/26/2025 1:13 PM EDT Result Marco Antonio Restrepo MD LAB BLOOD ORDERABLES Final Resul t Performing Organization Address [facility] Co de Phone Number [facility] [address] [place] [phone] * Hepatitis B Core Antibody, Total (05/26/2025 11:38 AM EDT) Pathologist [facility] [place] Hepatitis B Core Antibody Nonreactive Nonreactive [facility] Blood Venous blood specimen / Unknown 05/26/2025 11:38 AM EDT 05/26/2025 1:13 PM EDT us Christopher Restrepo MD LAB BLOOD ORDERABLES Final Resul t Performing Organization Address [facility] Co de Phone Number [facility] [address] [place] [phone] documented in this encounter Visit Diagnoses Diagnosis Penile rash- Primary Moderate persistent asthma without complication documented in this encounter
[2025-05-28 10:22] VITALS: BP 120/82; PULSE 74; RESP 16; TEMP 36.8; O2SAT 97; BMI 21.1
--- NOTE | 2025-05-28 10:42 | ED_ITS ---
HPI - General Adult General Chief complaint: Skin/Abscess/Foreign Body Stated complaint: rash Time Seen by Provider: 05/28/25 10:41 Source: patient and family (Mother at bedside) Mode of arrival: ambulatory Limitations: no limitations History of Present Illness ED Provider: YAZAN Winslow HPI narrative: 25-year-old male without significant medical history presents to the ED due to d ry, flaky rash over the scrotum and shaft of penis. Patient states he went to urgent care in December and was prescribed clotrimazole cream twice a day for suspected fungal infection of his genitals. Patient has been using clotrimazole cream twice a day until completion without resolution of his symptoms. Patient states the area is very dry, and when rubbing against pants or underwear or stretching the skin sometimes will break open and bleed. Additionally, patient states Sunday he experienced urinary urge, with the need to push to empty his bladder fully. Denies chest pain, shortness of breath, testicular pain, fevers MD complaint: flaking rash over scrotum Related Data Previous Rx's ?Medication ?Instructions ?Recorded hydrocortisone 1 % lotion 1 appl topical BID #120 mL 0 05/28/25 (Anti-Itch (hydrocortisone)) Allergies Allergy/AdvReac Type Severity Reaction Status Date / Time No Known Allergies Allergy Verified 05/28/25 10:25 Review of Systems Review of Systems: CONST: Negative for fever, body aches and chills. HENT: Negative for neck pain/stiffness, headache, congestion, sore throat, swelling. EYES: Negative for discharge/pain or vision changes. RESP: Negative for cough/hemoptysis and shortness of breath. CV: Negative chest pain, difficulty breathing, palpitations. ABD: Negative pain, nausea, vomiting. : Negative increase frequency, dysuria, blood in urine or stool. POS urinary straining, flaky rash over scrotum and shaft of penis MUSC: Negative for muscle aches, edema. SKIN: Negative rash, lesions/sores. NEURO: Negative headache, dizziness, weakness. Yes all other systems are reviewed and are negative [facility] Social History Social History Advance Directives: No Advance Directives Information Provided: No Physical Exam ED Vital Signs: Vital Signs - 24 hr 05/28/25 10:22 Temperature 98.2 F Pulse Rate 74 Respiratory Rate 16 Blood Pressure 120/82 Pulse Oximetry 97 Oxygen Delivery Method Room Air BMI result Body Mass Index 21.1 GENERAL APPEARANCE: ?AxOx4, generally well-appearing, no acute distress. HEENT: ?NC, AT. MMM. EOMI, clear conjunctiva, oropharynx clear. NECK: ?Supple without lymphadenopathy.? No stiffness or restricted ROM. HEART:? Normal rate and regular rhythm, normal S1/S2, no m/r/g LUNGS:? CTAB, moving air well. No crackles or wheezes are heard. ABDOMEN: ?Soft, nontender, nondistended with good bowel sounds heard. BACK: No CVAT, no obvious deformity. : There is a mild flakiness to the skin of the scrotum, and of the base of the shaft of the penis, without erythema, edema, no weeping or oozing, no tenderness to the testicles EXTREMITIES: ?Without cyanosis, clubbing or edema. NEUROLOGICAL: ?Grossly nonfocal. Alert and oriented, moving all 4 extremities. Observed to ambulate with normal gait. Skin: ?Warm and dry without any rash. Medical Decision Making Medical Decision Making MDM Narrative: 25-year-old male without significant medical history presents to the ED due to dry, flaky rash over the scrotum and shaft of penis that has been persistent since December. Patient was seen in urgent care in December and prescribed clotrimazole for suspected fungal infection. Patient used all of this medication without improvement of the flakiness. Additionally, patient complaining of the need to strain when urinating to empty his bladder fully that began on Sunday. He is interested in STI testing today. On physical exam of the genitals there are no lesions, discharge from the meatus noted. There is a mildly flaky rash over the scrotum, and base of the penile shaft, that appears to be scrotal eczema. There is no erythema or ?beefy? rash seen in the groin or on the testicles, no honey-colored crusts or evidence of bacterial infection, patient without tenderness to the testicles on palpation, no pain to palpation of the epididymis. UA negative for blood or infection. 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 Patient will be prescribed 1% hydrocortisone cream that he is instructed to use twice a day for the next 2 weeks. Additionally, I counseled patient to use emollients such as CeraVe or Aquaphor to use over the dry skin. I will place referral to Urology since patient has been dealing with straining, and does not have primary care doctor to follow up with at this time. Patient and mother are in agreement with the plan. Differential Diagnosis Differential Diagnoses: The differential diagnosis associated with the presentation includes Fungal infection Bacterial infection Scrotal eczema UTI Admission/Observation Consideration of admission/observation: Escalation of care including admission/observation considered Lab Data MDM Lab Attestation statement: I reviewed the patient's lab results. Labs: Lab Results 05/28/25 Range/Units 11:18 Urine Color Yellow Urine Appearance Clear Urine pH 6.0 (5.0-9.0) Ur Specific [place] >= 1.030 H (1.005-1.025) Urine Protein Negative (Neg-Trace) mg/dL Urine Glucose (UA) Negative (Negative) mg/dL Urine Ketones Trace (Negative) mg/dL Urine Blood Negative (Negative) Urine Nitrite Negative (Negative) Ur Leukocyte Esterase Negative (Negative) Independent Historian Clinical information obtained from an independent historian. History obtained from or confirmed by: Parent (Mother at bedside corroborating history) External Record Review External record reviewed: Inpatient record, Office record and Outpatient record Prescription Management I considered prescription management with: Antibiotic (I considered antibiotic, however patient without discharge of the meatus, no testicular pain, no pain of the epididymis, antibiotics not indicated at this time.) Discharge Plan Discharge Clinical Impression: Rash on scrotum Patient Disposition: Home, Self-Care Additional Instructions: You were evaluated in the ED today due to a flaky rash on the scrotum, and base of the penile shaft. On physical exam this looks to be scrotal eczema and not a fungal or bacterial infection at this time. Your urine was negative for blood or infection today. However I will place a referral to Urology today cecum follow up with them due to your concerns with straining with urination. Please continue to see [facility] and get established with a primary care provider. Additionally I will provide referrals for primary care. You need to call their office, they will not call you. You are being tested for gonorrhea and chlamydia today, we will call you if these results are positive, and treat you as indicated. You are being prescribed 1% hydrocortisone cream that you will place on the scrotum, and the base of the penile shaft. Do not put this medication anywhere near the glands or the head of the penis. Use this cream twice a day for 2 weeks. Additionally, use emollients like CeraVe or Aquaphor to moisturize the skin. I recommend using the hydrocortisone cream in the morning and at night and using the emolient creams in between these times to keep the skin moisturized. [facility] Urology will be contacting you within 2 business?days after being discharged from the Emergency?Department.? During this?phone call, they will inform you when your follow up appointment will be scheduled. If you have not received a call from [facility] Urology after 2 business?days, please call the?office at [phone]. Please return to the ED if you experience discharge from the penis, worsening rash, redness or itchiness of the scrotum, testicular pain, fevers over 100.4?, weeping or discharge from the skin on the scrotum, or any new/worsening/concerning symptoms. Prescriptions: New hydrocortisone [Anti-Itch (HC)] 1 % lotion 1 appl topical BID Qty: 120 0RF Referrals: [facility] Urology Services [Provider Group, Urology] [facility] Family Medicine [Provider Group, Family Practice] Casandra Dela Cruz NP [Nurse Practitioner, Family Practice] [facility] [Provider Group, Family Practice] Print Language: [place]ese
[2025-05-28 11:30] LABS: Appearance Urine Clear; Glucose Urine UA Negative (Negative); PH 6.0 (5.0-9.0); Specific Gravity - Urine >= 1.030 (1.005-1.025)
[2025-05-28 11:53] VITALS: BP 120/82; PULSE 74; RESP 16; TEMP 36.8; O2SAT 97
[2025-05-28 13:06] LABS: CT PCR Urine NOT DETECTED (Not Detect.); NG PCR Urine NOT DETECTED (Not Detect.)
--- OUTSIDE RECORDS SUMMARY | 2025-05-28 13:34 | XMS_ITS | Encounter Summary ---
Demographics Address [address] [place] [address] Home Phone Work Phone Mobile Phone Email Address Preferred Language en Marital Status Single Sikhism Affiliation Unknown Race Other Race Ethnic Group Unknown Author Organization [employer] Address [address] [place] [address] Care Team Providers Care Patient Scheduler Name Role Phone Unavailable Primary Care Provider Unavailabl e Encounter Details Date Type Department Care Team (Late st Contact Info) Description 05/28/2025 Orders Only GENERIC EXTERNAL DATA DEPARTMENT Provider, Generic External Data Social History Tobacco Use Types Packs/Day Years [...] on file documented as of this encounter Procedures Procedure Name Priority Date/Time Associated Diagnosis Comments URINALYSIS WITH REFLEX MICROSCOPIC Routine 05/28/2025 11:18 AM EDT documented in this encounter Results * (ABNORMAL) Urinalysis w/reflex microscopic (05/28/2025 11:18 AM EDT) Color Urine Yellow LABS Appearance Urine Clear LABS PH 6.0 5.0 - 9.0 LABS Glucose Urine UA Negative Negative mg/dL LABS Urine Blood Negative Negative LABS Specific [place] - Urine >=1.030(H) 1.005 - 1.025 LABS Urine Protein Negative Neg-Trace mg/dL LABS Urine Ketones Trace Negative mg/dL LABS Nitrite Urine Negative Negative [facility] Leukocyte Esterase Urine Negative Negative LABS 05/28/2025 11:1 8 AM EDT 05/28/2025 11:24 AM EDT Narrative LABS - 05/28/2025 11:31 AM EDT Urine, Clean Catch us Generic External Data Provider LAB URINE ORDERAB LES Final Result LABS [address] [place] [phone] [phone] documented in this encounter Visit Diagnoses Not on filedocumented in this encounter
--- OUTSIDE RECORDS SUMMARY | 2025-05-28 13:34 | XMS_ITS | Clinical Summary ---
Author Organization [employer] Address [address] [place] [address] Care Team Providers Care Recreational Therapy Technician Name Role Phone Unavailable Primary Care Provider [...] Encounters Date Type Department Care Team Description 05/28/2025 Orders Only GENERIC EXTERNAL DATA DEPARTMENT Provider, Generic External Data 05/26/2025 10:20 AM EDT Office Visit [facility] [address] [place] [address] Christopher Restrepo MD Penile rash (Primary Dx); Moderate persistent asthma without complication 05/26/2025 Telephone [facility] MEDICINE [address] [place] [address] Eric Briceño MD 05/26/2025 Travel from Last [...] and Gonorrhea Screening 2002 Depression Screening 2002 SDOH Screening 2002 Disability Screening 2002 Alcohol/Substance Use Screening 2014 Family Planning (PISQ) 2017 HPV Vaccines (1 - Male 3-dos e series) 2017 Meningococcal B Vaccine (1 o f 2 - Standard) 2018 DTaP/Tdap/Td Vaccines (1 - Tdap) 2021 Hepatitis [...] older (1 - 1-dose 75+ series) 2077 HIV Screening Completed 05/26/2025 Hepatitis C Screening Completed 05/26/2025 HIB Vaccines Aged Out No longer eligi [...] REFLEX MICROSCOPIC Routine 05/28/2025 11:18 AM EDT VITAMIN D,25-OH,TOTAL,IA Routine 05/26/2025 11:38 AM EDT [...] Routine 05/26/2025 11:38 AM EDT Penile rash SYPHILIS SCREEN Routine 05/26/2025 11:38 AM EDT Exposure to virus from Last 3 Months Results * (ABNORMAL) Urinalysis w/reflex microscopic (05/28/2025 11:18 AM EDT) Color Urine Yellow [facility] Appearance Urine Clear [facility] PH 6.0 5.0 - 9.0 [facility] Glucose Urine UA Negative Negative mg/dL [facility] Urine Blood Negative Negative [facility] Specific [place] - Urine >=1.030(H) 1.005 - 1.025 [facility] Urine Protein Negative Neg-Trace mg/dL [facility] Urine Ketones Trace Negative mg/dL [facility] Nitrite Urine Negative Negative [facility] Leukocyte Esterase Urine Negative Negative [facility] 05/28/2025 11:1 8 AM EDT 05/28/2025 11:24 AM EDT Narrative [facility] - 05/28/2025 11:31 AM EDT Urine, Clean Catch us Generic External Data Provider LAB URINE ORDERAB LES Final Result Performing Organization Address [facility]/ZIP Co de Phone Number [facility] [address] [place] [phone] * Syphilis Screen (05/26/2025 11:38 AM EDT) Syphilis Screen Nonreactive Nonreactive [facility] Blood 05/26/2025 11:3 8 AM EDT 05/26/2025 1:13 PM EDT Pipe George MD LAB BLOOD ORDERABLES Final Resul t Performing Organization Address [facility]/ZIP Co de Phone Number [facility] [address] [place] [phone] * (ABNORMAL) Vitamin D, 25-Hydroxy, Total, Immunoassay (05/26/2025 11:38 AM EDT) Vitamin D 25-OH Total 17.9(L) >30 ng/mL [facility] Comment: Health Based Reference Values*< 20 ng/mL [id number] ng/mL Insufficient> 30 ng/mL Sufficient*Patria PAREDES. N [...] 8 AM EDT 05/26/2025 1:13 PM EDT Christopher Restrepo MD LAB BLOOD ORDERABLES Final Resul t [facility] [address] [place] [phone] * (ABNORMAL) CBC auto differential (05/26/2025 11:38 AM EDT) White Blood Count 5.9 4.8 - 10.8 X10*3/uL [facility] Red Blood Count 4.68 4.60 - 5.80 X10*6/uL [facility] Hemoglobin 13.6(L) 14.0 - 18.0 g/dl [facility] Hematocrit 41.4(L) 42.0 - 52.0 % [facility] Mean Corpuscular Volume 88.5 80.0 - 98.0 fL [facility] Mean Corpuscular Hemoglobin 29.1 27.0 - 33.0 pg [facility] Mean Corpuscular HGB Conc 32.9 31.0 - 36.0 g/dl [facility] Red Cell Distribution Width 12.8 11.0 - 16.0 % [facility] Platelet Count 373 160 - 400 X10*3/uL [facility] Mean Platelet Volume 10.2 9.4 - 12.4 fL [facility] Neutrophils Percent Auto 60.6 45 - 73 % [facility] Imm Gran Pct Auto 0.2 0.0 - 0.4 % [facility] Lymphocytes Percent Auto 24.6 20 - 40 % [facility] Monocytes Percent Auto 6.5 2 - 11 % [facility] Eosinophils Percent Auto 7.2(H) 0 - 4 % [facility] Basophils Percent Auto 0.9 0 - 2 % [facility] NRBC Pct Auto 0.0 0.0 - 0.2 /100WBC [facility] Neutrophils Absolute Auto 3.6 2.0 - 8.3 x10*3/uL [facility] Imm Gran Abs Auto 0.01 0.00 - 0.03 X10*3/uL [facility] Lymphocytes Absolute Auto 1.4 1.2 - 4.9 X10*3/uL [facility] Monocytes Absolute Auto 0.4 0.1 - 1.2 X10*3/uL [facility] Eosinophils Absolute Auto 0.4 0.0 - 0.4 X10*3/uL [facility] Basophils Absolute Auto 0.1 0.0 - 0.2 X10*3/uL [facility] NRBC Abs Auto 0.000 0.0 - 0.012 X10*3/uL [facility] Blood Venous blood specimen / Unknown 05/26/2025 11:38 AM EDT 05/26/2025 1:13 PM EDT us Christopher Restrepo MD LAB BLOOD ORDERABLES Final Resul t Performing Organization Address [facility] Co de Phone Number [facility] [address] [place] [phone] * Hepatitis C Antibody with Reflex to HCV, RNA, Quantitative, Real-Time PCR (05/26/2025 11:38 AM EDT) Hepatitis C Antibody Nonreactive Nonreactive [facility] Comment:Antibodies to HCV no t detected; does not exclude early acuteHCV infection. Blood Venous blood specimen / Unknown 05/26/2025 11:38 AM EDT 05/26/2025 1:13 PM EDT us Christopher Restrepo MD LAB BLOOD ORDERABLES Final Resul t Performing Organization Address [facility] de Phone Number [facility] [address] [place] [phone] * Hepatitis B surface antigen, EIA (05/26/2025 11:38 AM EDT) Hepatitis B Surface Ag Negative Negative [facility] Blood Venous blood specimen / Unknown 05/26/2025 11:38 AM EDT 05/26/2025 1:13 PM EDT us Christopher Restrepo MD LAB BLOOD ORDERABLES Final Resul t Performing Organization Address [facility] Co de Phone Number [facility] [address] [place] [phone] * Hepatitis B Core Antibody, Total (05/26/2025 11:38 AM EDT) Hepatitis B Core Antibody Nonreactive Nonreactive [facility] Blood Venous blood specimen / Unknown 05/26/2025 11:38 AM EDT 05/26/2025 1:13 PM EDT us Christopher Restrepo MD LAB BLOOD ORDERABLES Final Resul t Performing Organization Address [facility] Co de Phone Number [facility] [address] [place] [phone] * RPR (Monitor) with Reflex to??Titer (05/26/2025 11:38 AM EDT) RPR (Monitor) w/Refl Titer NON-REACTI VE NON-REACT KARINA [facility] Comment:THIS TEST WAS PERFOR MED AT:[employer] [place] [phone] WOLF MD Rapid Plasma Reagin Ab Titer TNP [facility] Blood Venous blood specimen / Unknown 05/26/2025 11:38 AM EDT 05/26/2025 1:13 PM EDT Christopher Restrepo MD LAB BLOOD ORDERABLES Final Resul t Performing Organization Address [facility] de Phone Number [facility] [address] [place] [phone] * HIV-1/2 Antigen and Antibodies, Fourth Generation, with Reflexes (05/26/2025 11:38 AM EDT) Pathologist [facility] HIV AB/AG Nonreactive Nonreactive [facility] Comment:HIV-1 p24 Ag and/or HIV-1/HIV-2 Ab not detected.A test result that is nonreactive does not exclude thepossibility of exposure to or infection with HIV-1 and/orHIV-2. Nonreactive results in this assay for individualswith prior exposure to HIV-1 and/or HIV-2 may be due toantigen and antibody levels that are below the limit ofdetection of this assay.[employer] HIV Ag/Ab Combo assay result andsupplemental assay results should be interpreted inconjunction with the patient's clinical presentation,history and other laboratory results. If the results areinconsistent with clinical evidence, additional testing issuggested to confirm the result. Blood Venous blood specimen / Unknown 05/26/2025 11:38 AM EDT 05/26/2025 1:13 PM EDT us Christopher Restrepo MD LAB BLOOD ORDERABLES Final Resul t Performing Organization Address [facility] de Phone Number [facility] [address] [place] [phone] * Hepatitis B Surface Antibody, Qualitative (05/26/2025 11:38 AM EDT) ~Hepatitis B Surface Antibody NONREACTIVE Nonreactive [facility] Comment:Nonreactive: < 8.00 mIU/mL Blood Venous blood specimen / Unknown 05/26/2025 11:38 AM EDT 05/26/2025 1:13 PM EDT us Christopher Restrepo MD LAB BLOOD ORDERABLES Final Resul t Performing Organization Address [facility] Phone Number [facility] [address] [place] [phone] * Hemoglobin A1c (05/26/2025 11:38 AM EDT) Hemoglobin A1c 5.3 <6.0 % [facility] Comment:Hemoglobin A1C Refer ence Range Adults: 4.8 - 6.0 % Non diabetic: < 6.0 % Goal: < 7.0 %Additional Action Suggested: > 8.0 %Note: Hemoglobin A1c results are invalid for patients with abnormal amounts of HbF. Blood transfusions may impact the HbA1c concentration in the patient sample. Estimated Average Glucose 105 mg/dL [facility] Comment:eAG = Estimated ave rage glucose which is %A1C expressed asaverage glucose, using the formula of the F3C-GccjvayBfzwivc Glucose study (ADAG), Diabetes Care, Vol.31,#8,Apr. 2007 Blood Venous blood specimen / Unknown 05/26/2025 11:38 AM EDT 05/26/2025 1:13 PM EDT us Christopher Restrepo MD LAB BLOOD ORDERABLES Final Resul t Performing Organization Address [facility] de Phone Number [facility] [address] [place] [phone] * (ABNORMAL) Comprehensive Metabolic Panel (05/26/2025 11:38 AM EDT) Sodium 143 135 - 145 mmol/L [facility] Potassium 3.7 3.3 - 5.1 mmol/L [facility] Chloride 108 96 - 108 mmol/L [facility] Carbon Dioxide 31(H) 22 - 29 mmol/L [facility] Anion Gap 8(L) 12 - 20 [facility] Urea Nitrogen (BUN) 15 9 - 16 mg/dL [facility] Creatinine, Serum 0.87 0.5 - 1.4 mg/dL [facility] Estimated Glomerular Filt Rate >60 [facility] Comment:Chronic Kidney Disea se: Estimated GFR < 60 mL/min/1.79c2Nrbhud Kidney Disease: Estimated GFR < 15 mL/min/1.73m2 Glucose 70 60 - 115 mg/dL [facility] Calcium 9.0 8.4 - 10.2 mg/dL [facility] Bilirubin, Total 0.3 0.0 - 1.0 mg/dL [facility] Aspartate Amino Transferase 20 5 - 37 U/L [facility] Alanine Aminotransferase 13 0 - 40 U/L [facility] Total Protein 7.3 6.5 - 8.0 g/dL [facility] Albumin Level 4.4 3.5 - 5.0 g/dL [facility] Alkaline Phosphatase 76 39 - 117 U/L [facility] Blood Venous blood specimen / Unknown 05/26/2025 11:38 AM EDT 05/26/2025 1:13 PM EDT us Christopher Restrepo MD LAB BLOOD ORDERABLES Final Resul t [facility] [address] [place] [phone] from Last 3 Months Insurance * Guarantor: Ronald Pineda Account Type Relation to Patient Date of Phone Billing Address Personal/Family Self [address] [place] [address] [facility] C3
--- OUTSIDE RECORDS SUMMARY | 2025-05-28 13:34 | XMS_ITS | Encounter Summary ---
Author Organization [employer] Address [address] [place] [address] Care Team Providers Care Administrative Underwriter Name Role Phone Unavailable Primary Care Provider [...]
--- OUTSIDE RECORDS SUMMARY | 2025-05-28 13:34 | XMS_ITS | Encounter Summary ---
Author Organization [employer] Address [address] [address] [address] [place] [address] Care Team Providers Care Practice Manager Name Role Phone Unavailable Primary Care Provider Unavailabl e Encounter Details Date Type Department Care Team ([facility] st Contact Info) Description 05/26/2025 Telephone [facility] MEDICINE [address] [place] [address] Eric Briceño MD [address] [place] [address] Social History Tobacco Use Types Packs/Day Years [...] 05/26/2025 1:58 PM EDT Patient added to [facility] New Patient wait list as of 05/26/25. * Telephone Encounter - Imra Turner - 05/26/2025 1:58 PM EDT ----- Message from Christopher Restrepo MD sent at 05/26/2025 11:26 AM EDT ----- Please schedule new patient PCP appointment. Thank you documented in this encounter Plan of Treatment Not on file documented as of this encounter Visit Diagnoses Not on filedocumented in this encounter
== END 2025-05-28 11:54 | disposition home or self-care (01) ==
PROVIDERS: Emergency Provider Emergency Medicine
DX: R21 Rash and other nonspecific skin eruption (principal); N50.82 Scrotal pain
CPT/HCPCS: 81003; 87491; 87591; 99282; 99283